=== PATIENT | male | born 1985 | race Caucasian/White ===

== ENCOUNTER 2023-08-24 21:54 | Emergency (ER) | payer OTHER | END 2023-08-24 22:59 | disposition home or self-care (01) | LOC: VM.ED 21:54 | DX: T81.89XA Other complications of procedures, not elsewhere classified, initial encounter (principal) | CPT/HCPCS: 99282 ==

== ENCOUNTER 2023-12-27 01:05 | Emergency (ER) | payer OTHER | END 2023-12-27 01:30 | disposition home or self-care (01) | LOC: VM.ED 01:05 | DX: L73.9 Follicular disorder, unspecified (principal); Z88.8 Allergy status to other drugs, medicaments and biological substances | CPT/HCPCS: 99283 ==

== ENCOUNTER 2024-03-11 08:30 | Observation (INO) | payer OTHER, MEDICAID ==
[2024-03-11] MEDS ORDERED: Sodium Chloride 0.9% 10 ML Syringe FLUSH PRN (08:53)
[2024-03-11] MEDS: Lactated Ringers 1,000 ML IV ONE (09:00)
[2024-03-11 09:09] LABS: BASOPHILS PERCENT AUTO 0.4 % (0.2-1.2); EOSINOPHILS ABSOLUTE AUTO 0.1 x10^3/uL (0.0-0.5); EOSINOPHILS PERCENT AUTO 1.4 % (0.0-4.0); HEMATOCRIT 40.5 % (40.0-52.0); HEMOGLOBIN 14.4 g/dL (14.0-18.0); IMMATURE GRAN ABSOLUTE AUTO 0.01 x10^3/uL (0.00-0.07); LYMPHOCYTES ABSOLUTE AUTO 1.1 x10^3/uL (1.0-4.8); LYMPHOCYTES PERCENT AUTO 12.3 % (25.0-50.0); MEAN CORPUSCULAR HEMOGLOBIN 30.2 pg (26.0-32.0); MEAN CORPUSCULAR HGB CONC 35.6 g/dL (32.0-36.0); MEAN CORPUSCULAR VOLUME 84.9 fL (78.0-93.0); MONOCYTES ABSOLUTE AUTO 0.7 x10^3/uL (0.0-0.8); NEUTROPHILS ABSOLUTE AUTO 6.6 x10^3/uL (1.8-7.7); NEUTROPHILS PERCENT AUTO 77.8 % (50.0-80.0); PLATELET COUNT,PLT 192 x10^3/uL (130-400); RED BLOOD CELL COUNT 4.77 x10^6/uL (4.5-6.0); WHITE BLOOD CELL COUNT,WBC 8.5 x10^3/uL (4.0-10.0)
[2024-03-11 09:32] LABS: A/G RATIO 0.9; ALBUMIN 3.6 g/dL (3.4-5.0); ANION GAP 10.9 mmol/L (5-15); BILIRUBIN TOTAL 0.7 mg/dL (0.2-1.0); C-REACTIVE PROTEIN 1.19 mg/dL (<=0.50); CALCIUM 8.8 mg/dL (8.5-10.1); CREATININE 1.1 mg/dL (0.70-1.30); EST CRCL DRUG DOSING (CG) 101.89 mL/min; POTASSIUM,K 3.9 mmol/L (3.5-5.1); PROTEIN TOTAL,TP 7.6 g/dL (6.4-8.2)
[2024-03-11 09:34] LABS: LACTIC ACID 1.2 mmol/L (0.4-2.0)
[2024-03-11] MEDS: Sodium Chloride 0.9% 1,000 ML IV ONE (09:37)
[2024-03-11] MEDS: Ampicillin/Sulbactam 3 GM Vial IVPUSH ONE (09:37)
[2024-03-11] MEDS: Ketorolac 30 MG/ML SDV IVPUSH ONE (09:38)
[2024-03-11] MEDS ORDERED: RABIES IMMUNE GLOBULIN IM ONE (10:30)
[2024-03-11] MEDS ORDERED: [UNRECOGNIZED DRUG - OTHER] IM ONE (10:30)
[2024-03-11] MEDS: Rabies Immune Globulin/PF (HyperRAB) 300 UNIT/ML 5 ML SDV IM ONE (10:30)
[2024-03-11] MEDS: Diphtheria,Pertussis(Acell),Tetanus Vaccine 0.5 ML Syringe IM ONE (10:41)
[2024-03-11] MEDS: Rabies Vaccine (Avian) 2.5 Unit Inj Kit IM ONE (10:44)
[2024-03-11] MEDS: Iopamidol 612 MG/ML 100 ML Bottle IVPUSH ONE (10:48)
[2024-03-11] MEDS: Sodium Chloride 0.9% 1,000 ML IV SCH (12:58)
[2024-03-11] MEDS: Ampicillin/Sulbactam Na 3 GM in Sodium Chloride 0.9% 100 ML IV SCH (15:29)
[2024-03-11] MEDS ORDERED: Albuterol HFA 18 Gm Inhaler INH PRN (17:28)
[2024-03-11] MEDS: Acetaminophen 325 MG Tab PO PRN (17:49)
[2024-03-11] MEDS: Gabapentin 300 MG Cap PO SCH (21:02)
[2024-03-11] MEDS: Mirtazapine 15 MG Tab PO SCH (21:02)
[2024-03-12 07:23] LABS: BASOPHILS PERCENT AUTO 0.3 % (0.2-1.2); EOSINOPHILS ABSOLUTE AUTO 0.2 x10^3/uL (0.0-0.5); EOSINOPHILS PERCENT AUTO 2.5 % (0.0-4.0); HEMOGLOBIN 13.2 g/dL (14.0-18.0); IMMATURE GRAN ABSOLUTE AUTO 0.01 x10^3/uL (0.00-0.07); LYMPHOCYTES ABSOLUTE AUTO 1.4 x10^3/uL (1.0-4.8); LYMPHOCYTES PERCENT AUTO 15.8 % (25.0-50.0); MEAN CORPUSCULAR HEMOGLOBIN 30.6 pg (26.0-32.0); MEAN CORPUSCULAR HGB CONC 35.7 g/dL (32.0-36.0); MEAN CORPUSCULAR VOLUME 85.8 fL (78.0-93.0); MONOCYTES ABSOLUTE AUTO 0.6 x10^3/uL (0.0-0.8); MONOCYTES PERCENT AUTO 7.3 % (2.0-11.0); NEUTROPHILS ABSOLUTE AUTO 6.5 x10^3/uL (1.8-7.7); PLATELET COUNT,PLT 186 x10^3/uL (130-400); RED BLOOD CELL COUNT 4.31 x10^6/uL (4.5-6.0); WHITE BLOOD CELL COUNT,WBC 8.8 x10^3/uL (4.0-10.0)
[2024-03-12 07:34] LABS: A/G RATIO 0.97; ALBUMIN 3.1 g/dL (3.4-5.0); BILIRUBIN TOTAL 0.7 mg/dL (0.2-1.0); CALCIUM 8.4 mg/dL (8.5-10.1); CREATININE 1.1 mg/dL (0.70-1.30); EST CRCL DRUG DOSING (CG) 101.89 mL/min; PROTEIN TOTAL,TP 6.3 g/dL (6.4-8.2)
[2024-03-12] MEDS: Fluticasone Propionate Nasal Spray 9.9 ML BOTTLE NASBOTH SCH (08:58)
[2024-03-12] MEDS: Loratadine 10 MG Tab PO SCH (08:59)
[2024-03-13 10:30] VITALS: BP 137/85; PULSE 92
== END 2024-03-13 10:35 | disposition home or self-care (01) ==
LOC: SUPCPDRO 08:30 → VM.ED 08:30 → VM.MS 11:10
PROVIDERS: ADMIT Nurse Practitioner Family; ATTEND Nurse Practitioner Family
DX: L03.113 Cellulitis of right upper limb (principal); S41.151A Open bite of right upper arm, initial encounter; W54.0XXA Bitten by dog, initial encounter
CPT/HCPCS: 36415; 73100-RT; 73201; 80053; 83605; 84145; 85025; 86140; 90375; 90471; 90472; 90675; 90715; 96365; 96366; 96372; 96374; 96375; 96376; 99223; 99233; 99238; 99285-25; A9270-GY; G0378; J0295; J1885; J3490; J7030; Q9967